=== PATIENT | female | born 1930 | race Caucasian/White ===

== ENCOUNTER 2017-12-20 10:21 | Inpatient (IN) | payer MEDICARE, OTHER ==
[~2017-12-20] VITALS: Ht 170.2 cm; Wt 83.2 kg
[2017-12-20 11:32] LABS: Basophils # (auto) 0.1 uL; Basophils % (auto) 0.6 % (0.0-2.0); Eosinophils # (auto) 0 uL; Eosinophils % (auto) 0.2 % (0.0-7.0); Hematocrit 40.1 % (36.0-46.0); Hemoglobin 13.1 g/dL (12.2-16.2); Lymphocytes # (auto) 0.7 uL; Lymphocytes % (auto) 8.5 % (10.0-50.0); Mean Corpuscular Hemoglobin 31.5 pg (28.0-32.0); Mean Corpuscular Hgb Conc. 32.8 g/dL (32.0-36.0); Mean Corpuscular Volume 96.1 fL (80.0-100.0); Monocytes # (auto) 0.9 uL; Monocytes % (auto) 11.1 % (0.0-12.0); Neutrophils # (auto) 6.7 uL; Neutrophils % (auto) 79.6 % (37.0-80.0); Platelet Count (auto) 287 10^3/uL (140-450); Red Blood Cells 4.17 10^6/uL (4.0-5.20); Red Cell Distribution Width 14.5 % (11.8-14.3); White Blood Cell 8.4 10^3/uL (4.4-10.8)
[2017-12-20] MEDS ORDERED: cefTRIAXone 1GM/10ml IVPUSH 10 ML IV ONE (12:30)
[2017-12-20 13:07] LABS: Urine Bacteria FEW /hpf (None Seen); Urine Blood 1+ /uL (Negative); Urine Mucus FEW (None Seen); Urine Specific Gravity 1.028 (1.001-1.035); Urine WBC 3 /hpf (0 - 5)
[2017-12-20 13:47] LABS: Alanine Aminotransferase 159 U/L (13-56); Albumin 2.9 g/dL (3.4-5.0); Anion Gap 9 (5-15); Blood Urea Nitrogen 24 mg/dL (7-18); Calcium 8.4 mg/dL (8.5-10.1); Carbon Dioxide 24 mmol/L (21-32); Chloride 106 mmol/L (98-107); Glucose 136 mg/dL (74-106); Sodium 139 mmol/L (136-145)
[2017-12-20 13:52] LABS: Alkaline Phosphatase 109 U/L (45-117); Aspartate Aminotransferase 120 U/L (15-37); BUN/Creatinine Ratio 20.3; Bilirubin, Total 0.8 mg/dL (0.2-1.0); GFR African American 56 mL/min; GFR Non-African American 46 mL/min; Total Protein 6.9 g/dL (6.4-8.2)
[2017-12-20] MEDS ORDERED: D5W/SOD CHL 0.45% 1,000 ML IV ONE (16:30)
[2017-12-20] MEDS ORDERED: NITROGLYCERIN 0.4 MG SL TAB SL PRN (16:30)
[2017-12-20] MEDS ORDERED: MORPHINE SULFATE 4 MG/ML SYR/VIAL IV PRN (16:30)
[2017-12-20] MEDS ORDERED: ONDANSETRON HCL 4 MG/2 ML VIAL IV PRN (17:45)
[2017-12-20] MEDS ORDERED: HYDROcodone-ACET 5/325MG TAB PO ONE (18:00)
[2017-12-20] MEDS ORDERED: ONDANSETRON HCL 4 MG/2 ML VIAL IV ONE (18:00)
[2017-12-20] MEDS ORDERED: CHOL20007 PO (18:06)
[2017-12-20] MEDS ORDERED: GABA300C10 PO (18:06)
[2017-12-20] MEDS ORDERED: ATOR10TA52 PO (18:06)
[2017-12-20] MEDS ORDERED: LOSA-46 PO (18:06)
[2017-12-20] MEDS ORDERED: METO25TA5 PO (18:06)
[2017-12-20] MEDS ORDERED: MECL-87 PO (18:06)
[2017-12-20] MEDS ORDERED: ANAS1TAB7 PO (18:06)
[2017-12-20] MEDS ORDERED: AMIO200T33 PO (18:06)
[2017-12-20] MEDS ORDERED: DONE10TA40 PO (18:06)
[2017-12-20] MEDS ORDERED: AMIT25TA9 PO (18:06)
[2017-12-20] MEDS ORDERED: CARV6.2551 PO (18:06)
[2017-12-20] MEDS ORDERED: AZITHROMYCIN 500MG/ 250ML 250 ML IV ONE (18:30)
[2017-12-20] MEDS ORDERED: INFLUENZA QUAD 2018-2019 0.5 ML SYRG IM ONE (20:00)
[2017-12-20] MEDS: cefTRIAXone 1GM/10ml IVPUSH 10 ML IV SCH (21:15)
[2017-12-20] MEDS: HYDROcodone-ACET 5/325MG TAB PO PRN (21:16)
[2017-12-20 22:00] VITALS: BP 119/55
[2017-12-20] MEDS ORDERED: FAMOTIDINE (10MG/ML) 2ML VL IV ONE (22:00)
[2017-12-21 05:00] VITALS: BP 112/73
[2017-12-21 09:00] VITALS: BP 127/77
[2017-12-21] MEDS: cefTRIAXone 1GM/10ml IVPUSH 10 ML IV SCH ×2 (09:37→20:56)
[2017-12-21] MEDS: AZITHROMYCIN 500MG/ 250ML 250 ML IV SCH (09:39)
[2017-12-21] MEDS ORDERED: cefTRIAXone 1GM/10ml IVPUSH 10 ML IV SCH (10:00)
[2017-12-21 13:00] VITALS: BP 100/62
[2017-12-21] MEDS ORDERED: ENOXAPARIN SOD 100 MG/1 ML SYRINGE SC SCH (13:15)
[2017-12-21] MEDS ORDERED: ENOXAPARIN SOD 80 MG/0.8ML SYRINGE SC ONE (13:30)
[2017-12-21] MEDS ORDERED: NITROGLYCERIN 0.4 MG SL TAB SL PRN ×2 (13:30)
[2017-12-21] MEDS ORDERED: MORPHINE SULFATE 4 MG/ML SYR/VIAL IV PRN ×2 (13:30)
[2017-12-21] MEDS ORDERED: SODIUM CHLOR 0.9% PF (SALINE LOCK) 10ML VIAL/SYR IV SCH (14:00)
[2017-12-21] MEDS: D5W/SOD CHL 0.45% 1,000 ML IV SCH (14:21)
[2017-12-21 15:36] LABS: Lactic Acid w/Reflex 2.3 mmol/L (0.4-2.0)
[2017-12-21 17:00] VITALS: BP 104/58
[2017-12-21 21:49] VITALS: BP 111/83
[2017-12-21] MEDS: ENOXAPARIN SOD 80 MG/0.8ML SYRINGE SC SCH (21:55)
[2017-12-22 05:00] VITALS: BP 107/81
[2017-12-22 07:16] LABS: Basophils # (auto) 0 uL; Basophils % (auto) 0.6 % (0.0-2.0); Eosinophils # (auto) 0.1 uL; Eosinophils % (auto) 1.2 % (0.0-7.0); Lymphocytes # (auto) 0.9 uL; Lymphocytes % (auto) 12.2 % (10.0-50.0); Mean Corpuscular Hemoglobin 32.8 pg (28.0-32.0); Mean Corpuscular Hgb Conc. 33.3 g/dL (32.0-36.0); Mean Corpuscular Volume 98.4 fL (80.0-100.0); Monocytes # (auto) 1.2 uL; Monocytes % (auto) 16.5 % (0.0-12.0); Neutrophils # (auto) 4.9 uL; Neutrophils % (auto) 69.5 % (37.0-80.0); Platelet Count (auto) 229 10^3/uL (140-450); Red Blood Cells 3.97 10^6/uL (4.0-5.20); Red Cell Distribution Width 14.6 % (11.8-14.3)
[2017-12-22 07:27] LABS: Albumin 2.7 g/dL (3.4-5.0); Potassium 3.9 mmol/L (3.5-5.1)
[2017-12-22 07:30] LABS: BUN/Creatinine Ratio 18.2; Bilirubin, Total 0.3 mg/dL (0.2-1.0); Total Protein 6.5 g/dL (6.4-8.2)
[2017-12-22 08:07] VITALS: BP 128/95
[2017-12-22] MEDS: D5W/SOD CHL 0.45% 1,000 ML IV SCH (08:54)
[2017-12-22] MEDS: ENOXAPARIN SOD 80 MG/0.8ML SYRINGE SC SCH ×2 (09:41→22:06)
[2017-12-22] MEDS: AZITHROMYCIN 500MG/ 250ML 250 ML IV SCH (09:41)
[2017-12-22] MEDS: cefTRIAXone 1GM/10ml IVPUSH 10 ML IV SCH (09:41)
[2017-12-22 11:41] VITALS: BP 114/89
[2017-12-22] MEDS: DOXYCYCLINE 100MG/250ML 250 ML IV SCH (12:25)
[2017-12-22 17:05] VITALS: BP 115/85
[2017-12-22 21:30] VITALS: BP 130/88
[2017-12-22] MEDS: cefTRIAXone 1GM/50ML D5W 50 ML IV SCH (22:06)
[2017-12-22] MEDS: SODIUM CHLORIDE 0.9% 1,000 ML IV SCH (22:06)
[2017-12-23] MEDS: HYDROcodone-ACET 5/325MG TAB PO PRN (01:00)
[2017-12-23] MEDS: DOXYCYCLINE 100MG/250ML 250 ML IV SCH ×2 (01:14→12:16)
[2017-12-23 05:00] VITALS: BP 101/79
[2017-12-23 06:09] LABS: Basophils # (auto) 0 uL; Basophils % (auto) 0.2 % (0.0-2.0); Eosinophils # (auto) 0 uL; Eosinophils % (auto) 0.4 % (0.0-7.0); Hematocrit 40.9 % (36.0-46.0); Hemoglobin 13.6 g/dL (12.2-16.2); Lymphocytes # (auto) 0.4 uL; Lymphocytes % (auto) 6.6 % (10.0-50.0); Mean Corpuscular Hemoglobin 32.9 pg (28.0-32.0); Mean Corpuscular Hgb Conc. 33.3 g/dL (32.0-36.0); Mean Corpuscular Volume 98.8 fL (80.0-100.0); Monocytes % (auto) 14.9 % (0.0-12.0); Neutrophils # (auto) 5.1 uL; Neutrophils % (auto) 77.9 % (37.0-80.0); Platelet Count (auto) 249 10^3/uL (140-450); Red Blood Cells 4.14 10^6/uL (4.0-5.20); Red Cell Distribution Width 14.6 % (11.8-14.3); White Blood Cell 6.6 10^3/uL (4.4-10.8)
[2017-12-23 06:25] LABS: Albumin 2.7 g/dL (3.4-5.0); BUN/Creatinine Ratio 17.8; Calcium 7.4 mg/dL (8.5-10.1); Lactic Acid w/Reflex 3.8 mmol/L (0.4-2.0); Potassium 3.8 mmol/L (3.5-5.1)
[2017-12-23 06:28] LABS: Bilirubin, Total 0.5 mg/dL (0.2-1.0); Total Protein 6.5 g/dL (6.4-8.2)
[2017-12-23 08:09] VITALS: BP 106/75
[2017-12-23] MEDS: AZITHROMYCIN 500MG/ 250ML 250 ML IV SCH (10:14)
[2017-12-23] MEDS: cefTRIAXone 1GM/50ML D5W 50 ML IV SCH (10:14)
[2017-12-23] MEDS: SODIUM CHLORIDE 0.9% 1,000 ML IV SCH (10:15)
[2017-12-23] MEDS: ENOXAPARIN SOD 80 MG/0.8ML SYRINGE SC SCH (10:15)
[2017-12-23 11:46] VITALS: BP 113/84
[2017-12-23] MEDS ORDERED: LEVOFLOXACIN 500 MG TAB PO SCH (14:00)
[2017-12-23] MEDS ORDERED: DOX100T PO (14:17)
[2017-12-23] MEDS ORDERED: LEVO500T21 PO (14:17)
[2017-12-23 17:01] VITALS: BP 117/87
[2017-12-23] MEDS: DOXYCYCLINE 100 MG TAB/CAP PO SCH (20:52)
[2017-12-23 22:00] VITALS: BP 107/71
[2017-12-24 05:07] VITALS: BP 106/67
[2017-12-24 08:12] LABS: Alanine Aminotransferase 432 U/L (13-56); Alkaline Phosphatase 177 U/L (45-117); Anion Gap 10 (5-15); Aspartate Aminotransferase 281 U/L (15-37); BUN/Creatinine Ratio 23.4; Blood Urea Nitrogen 30 mg/dL (7-18); Carbon Dioxide 22 mmol/L (21-32); Chloride 105 mmol/L (98-107); GFR African American 51 mL/min; GFR Non-African American 42 mL/min; Glucose 98 mg/dL (74-106); Potassium 4.2 mmol/L (3.5-5.1); Sodium 137 mmol/L (136-145)
[2017-12-24 08:13] LABS: Albumin 2.7 g/dL (3.4-5.0); Bilirubin, Total 0.4 mg/dL (0.2-1.0); Calcium 8.1 mg/dL (8.5-10.1); Total Protein 6.9 g/dL (6.4-8.2)
[2017-12-24 08:36] VITALS: BP 110/69
[2017-12-24] MEDS: DOXYCYCLINE 100 MG TAB/CAP PO SCH (10:53)
[2017-12-24] MEDS: ENOXAPARIN SOD 80 MG/0.8ML SYRINGE SC SCH (10:55)
[2017-12-24 12:55] VITALS: BP 136/59
[2017-12-24 17:00] VITALS: BP 122/76
[2017-12-24 17:24] VITALS: BP 122/76
== END 2017-12-24 18:30 | disposition hospice, home (50) | DRG 682 ==
LOC: EDBD 10:21 → ER 10:21 → OVERFLOW 10:22 → CENTRAL 17:38 → TELE-CENTR 12-22 12:18
PROVIDERS: ADMIT Internal Medicine; ATTEND Internal Medicine
DX: N17.0 Acute kidney failure with tubular necrosis (principal); J96.01 Acute respiratory failure with hypoxia; J18.9 Pneumonia, unspecified organism; N39.0 Urinary tract infection, site not specified; E87.2 Acidosis; E44.0 Moderate protein-calorie malnutrition; J90 Pleural effusion, not elsewhere classified; J98.11 Atelectasis; E11.21 Type 2 diabetes mellitus with diabetic nephropathy; I48.91 Unspecified atrial fibrillation; E66.01 Morbid (severe) obesity due to excess calories; I10 Essential (primary) hypertension; N63.20 Unspecified lump in the left breast, unspecified quadrant; E78.5 Hyperlipidemia, unspecified; F03.90 Unspecified dementia, unspecified severity, without behavioral disturbance, psychotic disturbance, mood disturbance, and anxiety; F32.9 Major depressive disorder, single episode, unspecified; F41.9 Anxiety disorder, unspecified; I27.21 Secondary pulmonary arterial hypertension; I70.0 Atherosclerosis of aorta; Z96.652 Presence of left artificial knee joint; K57.30 Diverticulosis of large intestine without perforation or abscess without bleeding; Z51.5 Encounter for palliative care; Z74.01 Bed confinement status; E11.40 Type 2 diabetes mellitus with diabetic neuropathy, unspecified; Z90.12 Acquired absence of left breast and nipple; Z92.21 Personal history of antineoplastic chemotherapy; Z92.3 Personal history of irradiation; Z85.3 Personal history of malignant neoplasm of breast; Z90.710 Acquired absence of both cervix and uterus; Z79.810 Long term (current) use of selective estrogen receptor modulators (SERMs); Z95.0 Presence of cardiac pacemaker; Z68.28 Body mass index [BMI] 28.0-28.9, adult; R16.0 Hepatomegaly, not elsewhere classified; Z88.2 Allergy status to sulfonamides
CPT/HCPCS: 36415; 36600; 71046; 71250; 74176; 76642; 80053; 81001; 82105; 82378; 82805; 83605; 83735; 84484; 85025; 85379; 86300; 86301; 86304; 87040; 87081; 90674; 93005; 93970; 96365; 96367; 96375; 97110; 97116; 97163; 97530; A6257; J0696; J2405; J3490